=== PATIENT | male | born 1945 | race Caucasian/White ===

== ENCOUNTER 2017-06-18 08:55 | Day surgery (SDC) | payer MEDICARE, OTHER ==
[~2017-06-18] VITALS: Ht 172.7 cm; Wt 61.4 kg
[~2017-06-18 08:55] MED LIST: PROZAC10 MG PO; SIMVASTATIN20 MG PO; TRAZODONE HCL150 MG PO
--- NOTE | 2017-06-18 10:52 | NUR ---
06/18/17 1052 Cleopatra Pelayo 1047 PATIENT ARRIVES TO PACU UNRESPONSIVE TO PAIN OR VERBAL STIMULI. RESP EVEN AND UNLABORED, ORAL AIRWAY IN PLACE, MASK AT 6 LITERS. ICE TO RIGHT GROIN.
--- NOTE | 2017-06-18 11:21 | NUR ---
ICED WATER GIVEN. CALL LIGHT W/IN REACH. SPOUSE @ BS. JAVED WISEMAN ON WARM.
[2017-06-18] MEDS ORDERED: NORCO 5-325 TA1 EACH PO (11:30)
--- NOTE | 2017-06-18 12:25 | NUR ---
PUDDING GIVEN. PT TOLERATES PUDDING WELL.
--- NOTE | 2017-06-19 09:22 | OR ---
[facility] [address] [place], [place] [address] Signed DATE OF PROCEDURE: 06/18/17 PREOPERATIVE DIAGNOSIS Reducible right inguinal hernia. POSTOPERATIVE DIAGNOSIS Reducible right indirect inguinal hernia. PROCEDURE PERFORMED Right Mamta onlay mesh inguinal herniorrhaphy. ESTIMATED BLOOD LOSS None. 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 After shelter, he decided to take employment at a local [employer] 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 However, he still asked to do a lot of walking. He told me he used to weigh at 248 pounds, but he has lost a significant amount of weight to the point, he is almost cachectic. In the meantime, he has noticed a painful but reducible bulge in his right groin. He said he has been at least 4 months. He said the pain is always about 4/10, but if he does anything at all it is 8/10 with activities. I met with Greg in the office. On exam, he indeed had a reducible right inguinal hernia. I gave him a brochure on hernias, which we looked at that together. He understands the nature of an inguinal hernia along with a difference between the primary suture repair and a mesh repair. He understands expected intraop and postop course. There is risk to surgery including, but not limited to bleeding, infection, scarring, change in contour of the skin, damage to the nerves, ischemic orchitis, recurrent hernias, and chronic pain. He had expressed understanding and wished to proceed. PROCEDURE IN DETAIL I met with Greg and his in our preop area. We all agreed it was the right groin and we marked that appropriately. After this, Greg was taken into the operating room and placed in a supine position under general anesthesia. He was given preoperative antibiotics along with subcutaneous heparin. SCDs were utilized. He was then prepped and draped in the usual sterile fashion. We made our standard oblique incision in the right groin and we carried it down through the tissue bluntly and with the cautery. External oblique fascia was opened along its length and developed medially and laterally. We could easily see his hernia emanating from the deep ring. The direct space was unremarkable. We elevated the cord structures at the level of pubic tubercle with the help of a [place] drain. The ilioinguinal, iliohypogastric nerves were visualized and protected throughout the case. The hernia sac was from the cord structures at Electronically Signed By: KT CRAVEN MD 06/19/17 0922 PATIENT NAME: GREG MANLEY OPERATIVE REPORT DATE OF : 47 PHYSICIAN: KT CRAVEN MD REPORT #: [id number] REPORT IS CONFIDENTIAL AND NOT TO BE RELEASED WITHOUT AUTHORIZATION [address] [address] Signed the level of deep ring. The sac was suture ligated at the neck, amputated, and passed off the field. A piece of flat Prolene mesh was cut to fit his groin and a slit was made in the mesh to accommodate the cord structures at the level of deep ring. The mesh was held in place medially and laterally with the help of running #1 Prolene suture. Local anesthetic was then copiously injected into the wound. The external oblique fascia was closed over the wound with the help of a running 2-0 PDS suture. Nick's fascia was reapproximated in a running 3-0 Monocryl suture. The dermis was reapproximated with interrupted 3-0 subcuticular Monocryl sutures. The skin edges were reapproximated with running 6-0 fast absorbing plain gut suture. Dry gauze and tape was then applied. Raul was awakened from his anesthesia, extubated in the OR, taken to recovery room in stable condition. MD MICHAEL Caballero/Niil /[id number] cc: DANIEL Livingston MD Electronically Signed By: KT CRAVEN MD 06/19/17 0922 PATIENT NAME: GREG MANLEY OPERATIVE REPORT DATE OF : 47 PHYSICIAN: KT CRAVEN MD REPORT #: [id number] REPORT IS CONFIDENTIAL AND NOT TO BE RELEASED WITHOUT AUTHORIZATION
== END 2017-06-18 15:15 | disposition home or self-care (01) ==
LOC: DS 08:55
PROVIDERS: Colon & Rectal Surgery
PROC: 0YU50JZ Supplement Right Inguinal Region with Synthetic Substitute, Open Approach (ICD-10-PCS; principal; 2017-06-18 10:00)
DX: K40.90 Unilateral inguinal hernia, without obstruction or gangrene, not specified as recurrent (principal); E78.5 Hyperlipidemia, unspecified; N40.0 Benign prostatic hyperplasia without lower urinary tract symptoms; J30.9 Allergic rhinitis, unspecified; F17.210 Nicotine dependence, cigarettes, uncomplicated; Z98.890 Other specified postprocedural states
CPT/HCPCS: 00830; C1781; J0690; J1100; J1644; J1885; J2250; J2405; J3010; J7120; Q9968

== ENCOUNTER 2017-07-03 09:05 | Day surgery (SDC) | payer MEDICARE, OTHER ==
[~2017-07-03] VITALS: Ht 172.7 cm; Wt 61.2 kg
[~2017-07-03 09:05] MED LIST changes: +NORCO 5-325 TA1 EACH PO
--- NOTE | 2017-07-03 11:15 | NUR ---
07/03/17 Del5 Manuela Lindsay PT O2 SAT 100, TURNED OFF O2.
--- NOTE | 2017-07-04 10:51 | OR ---
[facility] [address] [place], [place] [address] Signed DATE OF PROCEDURE: 07/03/17 PREOPERATIVE DIAGNOSES Melena. Weight loss of 113 pounds (248, down to 135 pounds). Unremarkable colonoscopy around age 61. History of smoking. POSTOPERATIVE DIAGNOSES Moderate sigmoid diverticulosis. A 4 mm polyp, proximal right colon. A 4 mm polyp, distal right colon. A 5 mm polyp at 18 cm. Moderate internal and external hemorrhoids. PROCEDURE: Colonoscopy with hot biopsy. ESTIMATED BLOOD LOSS: None. INDICATIONS Greg is a 72-year-old gentleman who was asked to see me for a colonoscopy. He also had a right inguinal hernia. We did repair that 2 weeks ago and he says he is doing fine. He wants to go back to work here in a few days. He said at one point he weighed 248 pounds. He is down 135 pounds. That represents 113-pound weight loss. We did not get into that in too much detail. He seems to be not particularly concerned. He has been a smoker his whole life. He does like to drink a little from [id number]. He said he had a negative colonoscopy about 10 years ago around the age of 61. He said he is also part of the [facility] in [place], [place]. He told me there is no family history of colon cancer or polyps. I had given him a pamphlet in the office on colonoscopy and we reviewed that together. He understands the nature of the test along with its risks including but not limited to gas bloating, crampy abdominal pain, bleeding, perforation requiring surgery, and missed diagnosis. He also understands the need for IV conscious sedation. He had expressed understanding and wished to proceed. PROCEDURE NOTE Greg was taken into our endoscopy suite and placed in the left lateral decubitus position. He was given divided doses of 5 mg of Versed and 100 mcg of fentanyl. A digital rectal exam was performed and he does have moderate manager title al hemorrhoids. His prostate was not particularly concerning. The adult colonoscope was introduced and advanced all the way around into the cecum under direct visualization of camera without difficulty. His prep was good. The scope was then slowly withdrawn. He did have a diverticulum in the base of his cecum next to the appendiceal orifice. We then took the Electronically Signed By: KT CRAVEN MD 07/04/17 1051 PATIENT NAME: GREG MANLEY OPERATIVE REPORT DATE OF : 47 PHYSICIAN: KT CRAVEN MD REPORT #: [id number] REPORT IS CONFIDENTIAL AND NOT TO BE RELEASED WITHOUT AUTHORIZATION [facility] [address] [place], [place] [address] Signed 2 polyps out of his right colon. We noticed he has moderate sigmoid diverticulosis as well. They are moderate in size, moderate in number, and scattered about, and then near the top of his rectum behind the top haustral fold, there was a filamentous 5 mm polyp which we removed with the hot biopsy forceps until completely cauterized down to the base. He also has moderate internal hemorrhoid columns on retroflexion of the scope. After this, the gas was suctioned out and the colonoscope removed. Greg tolerated the procedure quite well. RECOMMENDATIONS I will see Greg back in my office in 7-14 days to review his results. If he is having melena or weight loss, he should consider an upper endoscopy as well. He also needs to review this with his primary care provider, particularly with respect to his history of smoking. MD MICHAEL Caballero/Karin /[id number] cc: Shahbaz Mcarthur [place], [place] Electronically Signed By: KT CRAVEN MD 07/04/17 1051 PATIENT NAME: GREG MANLEY OPERATIVE REPORT DATE OF : 47 PHYSICIAN: KT CRAVEN MD REPORT #: [id number] REPORT IS CONFIDENTIAL AND NOT TO BE RELEASED WITHOUT AUTHORIZATION
== END 2017-07-03 11:48 | disposition home or self-care (01) ==
LOC: DS 09:05
PROVIDERS: Colon & Rectal Surgery
PROC: 0DBE8ZX Excision of Large Intestine, Via Natural or Artificial Opening Endoscopic, Diagnostic (ICD-10-PCS; 2017-07-03)
PROC: 0DBK8ZX Excision of Ascending Colon, Via Natural or Artificial Opening Endoscopic, Diagnostic (ICD-10-PCS; 2017-07-03)
PROC: 0DBP8ZX Excision of Rectum, Via Natural or Artificial Opening Endoscopic, Diagnostic (ICD-10-PCS; principal; 2017-07-03 10:30)
DX: D12.2 Benign neoplasm of ascending colon (principal); K62.1 Rectal polyp; K57.30 Diverticulosis of large intestine without perforation or abscess without bleeding; K64.4 Residual hemorrhoidal skin tags; K64.8 Other hemorrhoids; E78.5 Hyperlipidemia, unspecified; N40.0 Benign prostatic hyperplasia without lower urinary tract symptoms; F17.210 Nicotine dependence, cigarettes, uncomplicated; Z98.890 Other specified postprocedural states; Z79.899 Other long term (current) drug therapy
CPT/HCPCS: 88305; 99152; 99153; J2250; J3010; J7120